=== PATIENT | female | born 1995 | race Caucasian/White ===

== ENCOUNTER 2019-06-23 14:57 | Inpatient (IN) | payer OTHER ==
[2019-06-23] MEDS ORDERED: TERBUTALINE 1 MG/ML VIAL SQ PRN (15:18)
[2019-06-23] MEDS ORDERED: PENICILLIN G POTASSIUM 5,000,000 UNIT in DEXTROSE 5% IN WATER 100 ML IVPB STA ×2 (15:18)
[2019-06-23] MEDS ORDERED: METHYLERGONOVINE 0.2 MG/ML 1 ML AMP IM PRN (15:18)
[2019-06-23] MEDS ORDERED: LIDOCAINE 0.5% (PF) 5 MG/ML (50 ML SDV) SQ PRN (15:18)
[2019-06-23] MEDS ORDERED: OXYTOCIN 10 UNIT/ML 1 ML VIAL IM PRN (15:18)
[2019-06-23] MEDS ORDERED: CARBOPROST TROMETHAMINE 250 MCG/ML 1 ML AMP IM PRN (15:18)
[2019-06-23] MEDS ORDERED: BUTORPHANOL 1 MG/ML 1 ML VIAL IV PRN (15:20)
[2019-06-23] MEDS ORDERED: OXYTOCIN 30 UNITS/500 ML NS 30 UNIT in SALINE 1 500ML.BAG IV SCH (15:30)
[2019-06-23] MEDS: LACTATED RINGERS 1,000 ML IV SCH ×2 (15:41→19:43)
[2019-06-23 15:53] LABS: Basophils % (A) 0 %; Eosinophils # (A) 0.1 k/uL (0-0.7); Eosinophils % (A) 1 %; HCT 34.4 % (34.0-46.0); HGB 11.4 gm/dL (11.4-16.0); Hypochromasia Slight; Lymphocytes % (A) 10 %; MCH 28.1 pg (25.0-35.0); MCHC 33.1 g/dL (31.0-37.0); MCV 84.8 fL (80.0-100.0); Mean Platelet Volume 8.1; Monocytes # (A) 0.4 k/uL (0-1.0); Monocytes % (A) 4 %; Neutrophils # (A) 8.1 k/uL (1.3-7.7); Neutrophils % (A) 84 %; Platelet Count 233 k/uL (150-450); Poikilocytosis Slight; RBC 4.05 m/uL (3.80-5.40); RDW 14.3 % (11.5-15.5); WBC 9.7 k/uL (3.8-10.6)
[2019-06-23] MEDS ORDERED: ROPIVACAINE 5MG/ML 20ML VIAL ONE (19:15)
[2019-06-23] MEDS ORDERED: SODIUM CHLORIDE 0.9% 100 ML BAG ONE (19:15)
[2019-06-23] MEDS ORDERED: fentaNYL (PF) 50 MCG/ML 5 ML AMP ONE (19:15)
[2019-06-23] MEDS ORDERED: PENICILLIN G POTASSIUM 2,500,000 UNIT in DEXTROSE 5% IN WATER 100 ML IVPB SCH ×2 (19:30)
--- NOTE | 2019-06-23 20:02 | P.HPOB ---
History of Present Illness H&P Date: 06/23/19 Chief Complaint: My water broke at 10:30 this morning This is a 23-year-old white female 2 para 1001 EDC 07/07/2019 at 38 weeks gestation. Patient presented with a history of fluid leakage that started at 10:30 in the morning, clear and copious. Irregular rare uterine contractions to follow. Fetus is been active broke the . Past medical history is significant for positive chlamydia earlier in the , we culture negative. Past surgical history is negative. Current medications vitamins daily. ALLERGIES none known. Family history significant for cardiac palpitations. Reproductive history spontaneous vaginal delivery 2016, liveborn female infant, 7 lbs. 4 oz. Social history patient is single, father of the baby is present and involved. She is a massage therapist. She has never been a smoker, and denies alcohol and drug use. history significant for blood type O-, rubella status immune. Broke and given at 28 weeks. VDRL testing, urine culture, hepatitis B surface antigen, HIV testing all negative. One-hour Glucola 79. Group B strep cultures positive. On exam patient is 5 foot 7 inches, 213 pounds, blood pressure 133/88 on admission. Patient is afebrile with a temperature of 97.1. The general physical exam is within normal limits. Copious amount of clear fluid is noted on the perineal body. heart rate is in the 120s with frequent accelerations, consistent with reactive NST. Cervix at time of this dictation is 6-7 cm dilated, 70% effaced, -1 to -2 station, vertex. Epidural has been placed and is functioning well. Impression: 38 week intrauterine , spontaneous active labor, positive group B strep cultures. All signs reassuring. Plan: Continue penicillin G prophylaxis, second dose has just been hung. Continue oxytocin augmentation as needed. Continue close maternal and surveillance. Anticipate normal spontaneous vaginal delivery. Review of Systems Constitutional: Reports as per HPI Past Medical History Past Medical History: No Reported History History of Any Multi-Drug Resistant Organisms: None Reported Past Surgical History: No Surgical Hx Reported Past Anesthesia/Blood Transfusion Reactions: No Reported Reaction Past Psychological History: No Psychological Hx Reported Smoking Status: Never smoker Past Alcohol Use History: None Reported Past Drug Use History: None Reported - Past Family History Mother Family Medical History: No Reported History Additional Family Medical History / Comment(s): "heart issues" Medications and Allergies Home Medications Medication Instructions Recorded Confirmed Type Pnv,Calcium 72/Iron/Folic Acid 1 each PO DAILY 04/18/15 06/23/19 History [ Plus Tablet] Allergies Allergy/AdvReac Type Severity Reaction Status Date / Time No Known Allergies Allergy Verified 06/23/19 15:03 Exam Vital Signs Temp Pulse Resp BP Pulse Ox 06/23/19 15:36 97.1 F L 116 H 16 133/88 06/23/19 15:01 97.1 F L 116 H 16 133/88 100 Intake and Output 06/23/19 06/23/19 06/23/19 06:59 14:59 22:59 Other: Weight 96.615 kg see dictation under HPI, please Results Result Diagrams: 06/23/19 15:35 Abnormal Lab Results - Last 24 Hours (Table) 06/23/19 Range/Units 15:35 Neutrophils # 8.1 H (1.3-7.7) k/uL Assessment and Plan Assessment: 38 week intrauterine , active spontaneous labor. Positive group B strep cultures, second dose of penicillin G being administered. All signs otherwise reassuring. Plan: Continue close maternal and surveillance. Continue penicillin G per hospital protocol. Oxytocin as needed. Anticipate normal spontaneous vaginal delivery. Time with Patient: Less than 30
[2019-06-23] MEDS ORDERED: diphenhydrAMINE 50 MG CAP PO PRN (22:23)
[2019-06-23] MEDS ORDERED: WITCH HAZEL 1 EACH MED..PAD TOPICAL PRN (22:23)
[2019-06-23] MEDS ORDERED: LANOLIN CREAM 5 GM TUBE TOPICAL PRN (22:23)
[2019-06-23] MEDS ORDERED: diphenhydrAMINE 25 MG CAP PO PRN (22:23)
[2019-06-23] MEDS ORDERED: ACETAMINOPHEN TAB 325 MG TAB PO PRN (22:23)
[2019-06-23] MEDS ORDERED: diphenhydrAMINE 50 MG/ML 1 ML VIAL IVP PRN ×2 (22:23)
[2019-06-23] MEDS ORDERED: SIMETHICONE 80 MG CHEWABLE PO PRN (22:23)
[2019-06-23] MEDS ORDERED: ZOLPIDEM 5 MG TAB PO PRN (22:23)
[2019-06-23] MEDS ORDERED: HYDROCORTISONE 2.5% RECTAL CREAM 30 GM TUBE RECTAL PRN (22:23)
[2019-06-23] MEDS ORDERED: diphenhydrAMINE ELIXIR 25 MG/10 ML CUP PO PRN (22:23)
[2019-06-23] MEDS ORDERED: BENZOCAINE/MENTHOL SPRAY 1 GM/SPRAY AEROSOL TOPICAL PRN (22:23)
--- NOTE | 2019-06-23 22:23 | P.PROBDLV ---
Vaginal Delivery Note - . Vaginal Delivery Note: This is a 23-year-old white female 2 para 1001 EDC 07/07/2019 at 38 weeks gestation. Patient presented with spontaneous amniorrhexis which occurred at home, clear fluid. Rare irregular uterine contractions to follow. remarkable for blood type O negative, group B strep cultures positive, rubella status immune. Please see dictated history and physical for details. Penicillin G prophylaxis was started, patient received 2 doses. Oxytocin was started and titrated per hospital protocol as well. She became uncomfortable and requested an epidural, this was placed without difficulty. She progressed well through the first stage of labor was judged to be completely dilated at 03/14/2002 hours. heart rate was reassuring throughout the first and second stages of labor. Perineal body was prepped and draped in usual sterile fashion. With excellent maternal expulsive efforts the infant's head delivered occiput anterior and restituted accordingly. There was no nuchal cord noted. The right or anterior shoulder was delivered from underneath the pubic symphysis at which time the oropharynx, nasopharynx, and external nares were bulb suctioned on the perineal body. Patient was officially delivered of a liveborn male at 03/14/2008 hours. Umbilical cord was doubly clamped and ligated, he was handed to waiting nurses for evaluation where scores of 9 and 9 at one and 5 minutes respectively were given. Placenta was delivered with active management, inspected and noted to be intact with trivascular cord at 2212 hours. Uterus is then massaged. Careful inspection of the cervix, vagina, perineum, periurethral, and perirectal areas revealed no lacerations and no defects. Total estimated blood loss 200 mL's. weighed 7 lbs. 13 oz. or 3550 g. She is requesting circumcision for her son. Patient and her family are allowed to begin the bonding experience in the LDR.
[2019-06-23] MEDS ORDERED: OXYTOCIN 20 UNITS/1000 ML NS 1,000 ML IV SCH (22:30)
[2019-06-24 05:05] VITALS: RESP 16
--- NOTE | 2019-06-24 08:00 | P.DS ---
Providers Date of admission: 06/23/19 15:11 Expected date of discharge: 06/24/19 Attending physician: Rukhsana Hogan Primary care physician: Stated None Hospital Course: This is a 23-year-old white female 2 para 1001 EDC 07/07/2019 at 38 weeks gestation. Patient presented with spontaneous amniorrhexis which occurred at home, clear fluid. History is significant for positive group B strep cultures, blood type O-, rubella status immune. Please my admitting dictated history and physical for details. Penicillin G was given 2 doses. Oxytocin was started and titrated. Epidural was placed per her request. She went on to deliver a liveborn male infant with scores of 9 and 9 at one and 5 minutes respectively. weight 3550 g or 7 lbs. 13 oz. Estimated blood loss 200 mL, no lacerations. Please see dictated delivery note for details. This morning the patient is doing well. She is voiding, ambulating and passing flatus without difficulty. Vital signs are stable and she is afebrile. Fundus is firm and in the midline, symmetric and 18 week size. Extremities are negative for edema. Chest is clear in all marshall. Breast-feeding is going well. Breasts are not engorged. Patient is judged to be in very good condition for discharge home. She will follow-up with me in the office in 6 weeks. I have reminded her no intercourse, tampons or douching. She will use [id number] Advil or Aleve, or Motrin as needed for pain. I've asked her to call with any fevers shakes or chills, foul smelling or copious lochia, with the passage of large blood clots, with any pain not alleviated by [id number] products, or indeed with any concerns. [place] infant will follow-up with inshore undersea warfare officer as per recommendations. Patient Condition at Discharge: Good Plan - Discharge Summary Discharge Rx Participant: No New Discharge Prescriptions: No Action Pnv,Calcium 72/Iron/Folic Acid [ Plus Tablet] 1 each PO DAILY Discharge Medication List Pnv,Calcium 72/Iron/Folic Acid [ Plus Tablet] 1 each PO DAILY 04/18/15 [History] Follow up Appointment(s)/Referral(s): Rukhsana Hogan MD [STAFF PHYSICIAN] - 6 Weeks Discharge Disposition: HOME SELF-CARE
[2019-06-24] MEDS: SENNOSIDES-DOCUSATE SODIUM 1 EACH TAB PO SCH ×2 (08:26→19:43)
[2019-06-24] MEDS: IBUPROFEN 600 MG TAB PO PRN ×2 (13:14→19:43)
[2019-06-25] MEDS: SENNOSIDES-DOCUSATE SODIUM 1 EACH TAB PO SCH (08:09)
[2019-06-25] MEDS: IBUPROFEN 600 MG TAB PO PRN (08:09)
[2019-06-25 08:44] VITALS: BP 130/68; PULSE 73; TEMP 98
== END 2019-06-25 14:35 | disposition home or self-care (01) | DRG 807 ==
LOC: FBPOP 14:57 → 4FBP 15:11
PROVIDERS: ADMIT Obstetrics & Gynecology; ATTEND Obstetrics & Gynecology
PROC: 10E0XZZ Delivery of Products of Conception, External Approach (ICD-10-PCS; principal; 2019-06-23)
PROC: 00HU33Z Insertion of Infusion Device into Spinal Canal, Percutaneous Approach (ICD-10-PCS; principal; 2019-06-23)
PROC: 3E0R3BZ Introduction of Anesthetic Agent into Spinal Canal, Percutaneous Approach (ICD-10-PCS; principal; 2019-06-23)
DX: O99.824 Streptococcus B carrier state complicating childbirth (principal); Z37.0 Single live birth; Z3A.38 38 weeks gestation of pregnancy; Z67.41 Type O blood, Rh negative
CPT/HCPCS: 59025; 84112; 85025; 86850; 86870; 86880; 86900; 86901; 99213

== ENCOUNTER 2024-06-10 05:56 | Inpatient (IN) | payer OTHER ==
[2024-06-10] MEDS ORDERED: LIDOCAINE 0.5% (PF) 5 MG/ML (50 ML SDV) SQ PRN (06:07)
[2024-06-10] MEDS ORDERED: CARBOPROST TROMETHAMINE 250 MCG/ML 1 ML AMP IM PRN (06:07)
[2024-06-10] MEDS ORDERED: TERBUTALINE 1 MG/ML VIAL SQ PRN (06:07)
[2024-06-10] MEDS ORDERED: METHYLERGONOVINE 0.2 MG/ML 1 ML AMP IM PRN (06:07)
[2024-06-10] MEDS ORDERED: TRANEXAMIC 1,000 MG/100ML-NACL 1,000 MG in EMPTY BAG 1 BAG IV PRN (06:07)
[2024-06-10] MEDS ORDERED: miSOPROStoL 200 MCG TAB PO PRN (06:07)
[2024-06-10] MEDS ORDERED: miSOPROStoL 200 MCG TAB RECTAL PRN (06:07)
[2024-06-10] MEDS ORDERED: OXYTOCIN 10 UNIT/ML 1 ML VIAL IM PRN (06:07)
[2024-06-10] MEDS: LACTATED RINGERS 1,000 ML IV SCH (06:35)
[2024-06-10] MEDS: PENICILLIN G POTASSIUM 5,000,000 UNIT in SODIUM CHLORIDE 0.9% 100 ML IVPB STA (06:36)
[2024-06-10] MEDS: OXYTOCIN 30 UNITS/500 ML NS 30 UNIT in SALINE 1 500ML.BAG IV SCH (06:39)
[2024-06-10 07:15] LABS: Basophils # (A) 0.03 10*3/uL (0.00-0.10); Basophils % (A) 0.3 %; Eosinophils # (A) 0.05 10*3/uL (0.04-0.35); Eosinophils % (A) 0.6 %; HCT 35.3 % (37.2-46.3); Lymphocytes # (A) 1.18 10*3/uL (0.90-5.00); Lymphocytes % (A) 13.5 %; MCH 29.6 pg (27.0-32.0); MCV 86.9 fL (80.0-97.0); Mean Platelet Volume 10.7 fL (9.5-12.2); Monocytes # (A) 0.63 10*3/uL (0.20-1.00); Monocytes % (A) 7.2 %; Neutrophils # (A) 6.81 10*3/uL (1.80-7.70); Neutrophils % (A) 77.7 %; Platelet Count 233 10*3/uL (140-440); RBC 4.06 10*6/uL (4.10-5.20); RDW 13.4 % (11.5-14.5); WBC 8.76 10*3/uL (4.50-10.00)
--- NOTE | 2024-06-10 09:53 | P.HPOB ---
History of Present Illness H&P Date: 06/10/24 Chief Complaint: medical induction of labor Ms. Lester is a 28 year old at 39 weeks and 1 day gestation with EDC of 06/16/2024 by 13 week who presents for medical induction of labor for IUGR with AC in the 8%ile. The has been otherwise uncomplicated. work-up: Blood type O negative (s/p rhogam at 28 weeks), antibody negat lexy, rubella non-immune, VDRL non-reactive, HBsAg negative, HIV negative, HCV Ab non-reactive, gonorrhea negative, chlamydia negative, 1 hour GTT wnl, GBS positive Past Medical History Past Medical History: No Reported History History of Any Multi-Drug Resistant Organisms: None Reported Past Surgical History: No Surgical Hx Reported Past Anesthesia/Blood Transfusion Reactions: No Reported Reaction Past Psychological History: No Psychological Hx Reported Smoking Status: Never smoker Past Alcohol Use History: None Reported Past Drug Use History: None Reported - Past Family History Mother Family Medical History: No Reported History Additional Family Medical History / Comment(s): "heart issues" Medications and Allergies Home Medications Medication Instructions Recorded Confirmed Type Pnv,Calcium 72/Iron/Folic Acid 1 each PO DAILY 04/18/15 06/23/19 History [ Plus Tablet] Allergies Allergy/AdvReac Type Severity Reaction Status Date / Time No Known Allergies Allergy Verified 06/10/24 06:07 Exam Intake and Output 06/09/24 06/10/24 06/10/24 22:59 06:59 14:59 Other: Weight 85.275 kg Focused physical exam is performed. This is a healthy-appearing in no apparent distress. Breathing is non-labored. Abdomen is gravid and non-tender. Cervical exam is 2.5/60/-3 station. AROM is undertaken with clear fluid noted. Extremities non-tender and non-edematous. heart tones are Category I and tocometer is graphing contractions every 2-4 minutes. Results Result Diagrams: 06/10/24 06:30 Abnormal Lab Results - Last 24 Hours (Table) 06/10/24 Range/Units 06:30 RBC 4.06 L (4.10-5.20) 10*6/uL Hct 35.3 L (37.2-46.3) % Immature Gran # 0.06 H (0.00-0.04) 10*3/uL Assessment and Plan Assessment: 28 year old at 39 weeks and 1 day presenting for medical induction of labor for IUGR Plan: Admit, Pen G for GBS ppx, pitocin per protocol, continuous EFM and tocometer, anticipate vaginal delivery
[2024-06-10] MEDS: PENICILLIN G POTASSIUM 2,500,000 UNIT in SODIUM CHLORIDE 0.9% 100 ML IVPB SCH (10:42)
[2024-06-10] MEDS ORDERED: fentaNYL (PF) 50 MCG/ML 5 ML AMP ONE (13:43)
[2024-06-10] MEDS ORDERED: SODIUM CHLORIDE 0.9% 250 ML BAG ONE (13:43)
[2024-06-10] MEDS ORDERED: ROPIVACAINE 5 MG/ML 30 ML VIAL ONE (13:43)
[2024-06-10] MEDS ORDERED: BENZOCAINE/MENTHOL SPRAY 1 GM/SPRAY AEROSOL TOPICAL PRN (20:13)
[2024-06-10] MEDS ORDERED: diphenhydrAMINE 25 MG CAP PO PRN (20:13)
[2024-06-10] MEDS ORDERED: SIMETHICONE 80 MG CHEWABLE PO PRN (20:13)
[2024-06-10] MEDS ORDERED: ZOLPIDEM 5 MG TAB PO PRN (20:13)
[2024-06-10] MEDS ORDERED: LANOLIN CREAM 1 GM TUBE TOPICAL PRN (20:13)
[2024-06-10] MEDS ORDERED: diphenhydrAMINE 50 MG CAP PO PRN (20:13)
[2024-06-10] MEDS ORDERED: diphenhydrAMINE 50 MG/ML 1 ML VIAL IVP PRN ×2 (20:13)
[2024-06-10] MEDS ORDERED: HYDROCORTISONE 2.5% RECTAL CREAM 30 GM TUBE RECTAL PRN (20:13)
--- NOTE | 2024-06-10 20:17 | P.PROBDLV ---
Vaginal Delivery Note - . Vaginal Delivery Note: DATE OF SERVICE: 06/10/2024 PROCEDURE: Normal Vaginal Delivery ATTENDING: Dr. Manasa Hughes MD ESTIMATED BLOOD LOSS: 100 mL FINDINGS: VFI, Apgars 9/9. Weight 6 pounds and 15 ounces (3140 grams) PROCEDURE: Ms. Lester is a 28 year old at 39 weeks presenting to labor and delivery for medical induction of labor for IUGR. For further details, please review the admitting H&P. Pitocin was titrated per protocol. AROM was undertaken at 917 revealing clear amniotic fluid. The patient received epidural anesthesia per her request. The patient was completely dilated at 1950. The patient pushed effectively through two contractions and a viable female infant w as delivered at 1953 over an intact perineum. The infant was placed on the maternal abdomen and bulb suctioned. The infant was noted to be spontaneously crying. Cord was clamped and cut after a 60-second delay. The infant was handed off to the pediatric team. Placenta was delivered whole with gentle cord traction at 1959. Oxytocin was started to facilitate uterine tone. Uterine fundus was found to be firm and below the umbilicus upon fundal massage. Thorough examination of the cervix, vagina, periurethral area, and perineum revealed no lacerations. The patient is stable and allowed to begin the bonding process.
[2024-06-10 22:01] VITALS: RESP 16
[2024-06-11] MEDS: Rhogam IMMUNE GLOBULIN 1,500 UNIT/1 ML IM ONE (00:11)
[2024-06-11] MEDS: IBUPROFEN 800 MG TAB PO SCH (05:00)
[2024-06-11] MEDS: ACETAMINOPHEN TAB 500 MG TAB PO SCH (05:00)
[2024-06-11 06:57] LABS: Basophils # (A) 0.05 10*3/uL (0.00-0.10); Basophils % (A) 0.4 %; Eosinophils # (A) 0.07 10*3/uL (0.04-0.35); Eosinophils % (A) 0.6 %; HCT 35.2 % (37.2-46.3); HGB 11.7 g/dL (12.0-15.0); Lymphocytes # (A) 1.43 10*3/uL (0.90-5.00); Lymphocytes % (A) 11.6 %; MCH 29.4 pg (27.0-32.0); MCHC 33.2 g/dL (32.0-37.0); MCV 88.4 fL (80.0-97.0); Mean Platelet Volume 10.7 fL (9.5-12.2); Monocytes # (A) 0.75 10*3/uL (0.20-1.00); Monocytes % (A) 6.1 %; Neutrophils # (A) 10.01 10*3/uL (1.80-7.70); Neutrophils % (A) 80.7 %; Platelet Count 202 10*3/uL (140-440); RBC 3.98 10*6/uL (4.10-5.20); RDW 13.6 % (11.5-14.5); WBC 12.38 10*3/uL (4.50-10.00)
--- NOTE | 2024-06-11 09:37 | P.DS ---
Providers Date of admission: 06/10/24 05:56 Expected date of discharge: 06/11/24 Attending physician: Manasa Hughes MD Primary care physician: Stated None Hospital Course: Ms. Lester is a 28 year old now PPD#1 s/p after medical induction of labor at 39 weeks for IUGR. The patient is doing well this morning and had no acute events overnight. She has no complaints this morning. She reports minimal lochia, passing flatus, voiding without difficulty, ambulating, and eating/drinking without nausea or vomiting. doing well at bedside, breast feeding is going well. She denies chest pain, shortness of breathing, fevers, or chills overnight. She denies pain or swelling in the legs. restrictions are reviewed with the patient including pelvic rest for 6 weeks. The patient is encouraged to call the office if she experiences any heavy bleeding, foul-smelling discharge, breast complaints, or any if she has any other concerns. She will follow up in the office with in 6 weeks for exam. All questions are answered. Patient Condition at Discharge: Good Plan - Discharge Summary New Discharge Prescriptions: New Ferrous Sulfate [Iron (65 MG Elemental)] 325 mg PO DAILY #30 tab Ibuprofen [Motrin] 600 mg PO Q6HR PRN #30 tab PRN Reason: Mild Pain (Scale 1 To 3) Acetaminophen Tab [Tylenol] 650 mg PO Q6H PRN #30 tab PRN Reason: Mild Pain (Scale 1 To 3) No Action Pnv,Calcium 72/Iron/Folic Acid [ Plus Tablet] 1 each PO DAILY Discharge Medication List Pnv,Calcium 72/Iron/Folic Acid [ Plus Tablet] 1 each PO DAILY 04/18/15 [History] Acetaminophen Tab [Tylenol] 650 mg PO Q6H PRN #30 tab 06/11/24 [Rx] Ferrous Sulfate [Iron (65 MG Elemental)] 325 mg PO DAILY #30 tab 06/11/24 [Rx] Ibuprofen [Motrin] 600 mg PO Q6HR PRN #30 tab 06/11/24 [Rx] Follow up Appointment(s)/Referral(s): Manasa Hughes MD [STAFF PHYSICIAN] - 07/19/24 10:45 am Activity/Diet/Wound Care/Special Instructions: Instructions 1. Do not begin any exercise program for 3 weeks. 2. Do not resume sexual relations for 6 weeks or longer if uncomfortable. 3. You may take tub baths or showers at any time. 4. You may use tampons if desired after 6 weeks. 5. Keep any areas repaired with stitches clean and dry. 6. If you are not nursing, wear a good fitting, supportive bra during the day and limit fluid intake for at least 1 week to prevent breast engorgement. 7. Call the office, , within the next week to make appointment for your 6 week checkup if it has not already been made. 8. Report any of the following occurrences to the doctor promptly: a. Heavy, excessive bleeding b. Chills, fever c. Burning or frequency of urination d. Pain or redness and breasts if nursing e. Increasing pain or swelling of vulva (stitches). In addition to the above instructions, the following additional should be followed: 1. No heavy lifting or straining (exercising) until after 6 week checkup. 2. Keep abdominal incision clean and dry: You may wear a dressing if more comfortable. 3. Make office appointment for 2 weeks after delivery date. Discharge Disposition: HOME SELF-CARE
[2024-06-11] MEDS: SENNOSIDES-DOCUSATE SODIUM 1 EACH TAB PO SCH (12:03)
[2024-06-11 21:37] VITALS: BP 105/60; PULSE 62; TEMP 97.9
== END 2024-06-11 21:25 | disposition home or self-care (01) | DRG 560 ==
LOC: 4FBP 05:56
PROVIDERS: ADMIT Obstetrics & Gynecology; ATTEND Obstetrics & Gynecology
PROC: 10907ZC Drainage of Amniotic Fluid, Therapeutic from Products of Conception, Via Natural or Artificial Opening (ICD-10-PCS; principal; 2024-06-10)
PROC: 10E0XZZ Delivery of Products of Conception, External Approach (ICD-10-PCS; principal; 2024-06-10)
PROC: 3E033VJ Introduction of Other Hormone into Peripheral Vein, Percutaneous Approach (ICD-10-PCS; principal; 2024-06-10)
DX: O36.5930 Maternal care for other known or suspected poor fetal growth, third trimester, not applicable or unspecified (principal); Z37.0 Single live birth; Z3A.39 39 weeks gestation of pregnancy; O99.824 Streptococcus B carrier state complicating childbirth; Z28.310 Unvaccinated for COVID-19; Z28.21 Immunization not carried out because of patient refusal
CPT/HCPCS: 85025; 86850; 86900; 86901